=== PATIENT | female | born 1935 | race Hispanic/Latino ===

== ENCOUNTER 2018-05-17 06:55 | Inpatient (IN) | payer SELFPAY ==
[2018-05-17] MEDS ORDERED: ONDANSETRON 4 MG/2 ML VIAL ONE (07:37)
[2018-05-17] MEDS ORDERED: MORPHINE 2 MG/ML SYR ONE (07:37)
[2018-05-17 07:44] LABS: Absolute Lymphocytes (CBC) 3.1 K/uL (0.7-4.9); Absolute Monocytes 0.8 K/uL (0.1-1.3); Absolute Neutrophil 10.1 K/uL (1.8-8.0); Basophils % 0.3 % (0-1.3); Eosinophils % 0.8 % (0-4.4); Lymphocytes % 21.8 % (15.3-44.8); MPV 10.2 fL (7.6-11.3); Monocytes % 5.7 % (3.3-12.3); RBC Red Blood Cell Count 4.76 M/uL (3.86-4.86)
[2018-05-17 07:59] LABS: Potassium 3.8 mmol/L (3.5-5.1)
[2018-05-17] MEDS ORDERED: NA CHLORIDE 0.9% 500 ML ONE (08:10)
--- NOTE | 2018-05-17 08:23 | ER ---
Nurse's Notes [facility] Name: Kerry Briceno Age: 82 yrs Sex: Female : 1935 Arrival Date: 05/17/2018 Time: 07:00 Bed 20 Private MD: Diagnosis: Fracture of unspecified part of neck of left femur Presentation: 05/17 07:16 Presenting complaint: Patient states: Walking this morning, tripped and fell hurting jl7 her left hip and leg, denies LOC, denies hitting head. Care prior to arrival: None. Mechanism of Injury: Fall from standing position. Trauma event details: Injury occurred in the [facility], Injury occurred: at home. Injury occurred: May 17, 2018. 07:16 Acuity: CATHERINE 2 jl7 07:16 Method Of Arrival: Wheelchair jl7 07:21 Transition of care: patient was not received from another setting of care. Onset of jl7 symptoms was May 17, 2018. Risk Assessment: Do you want to hurt yourself or someone else? Patient reports no desire to harm self or others. Initial Sepsis Screen: Does the patient meet any 2 criteria? No. Patient's initial sepsis screen is negative. Does the patient have a suspected source of infection? No. Patient's initial sepsis screen is negative. Triage Assessment: 07:15 General: Appears in no apparent distress. uncomfortable, Behavior is calm, cooperative, jl7 appropriate for age. Pain: Complains of pain in left hip and left thigh Pain currently is 10 out of 10 on a pain scale. Neuro: Level of Consciousness is awake, alert, obeys commands, Oriented to person, place, time, situation. Cardiovascular: Patient's skin is warm and dry. Respiratory: Airway is patent Respiratory effort is even, unlabored, Respiratory pattern is regular, symmetrical. Derm: Skin is pink, warm \T\ dry. Musculoskeletal: left leg shortened and externally rotated. Trauma Activation: Alert Physician: ED Physician; Name: ; Notified At: ; Arrived At: Physician: General Surgeon; Name: ; Notified At: ; Arrived At: Physician: Radiology; Name: ; Notified At: ; Arrived At: Physician: Respiratory; Name: ; Notified At: ; Arrived At: Physician: Lab; Name: ; Notified At: ; Arrived At: Historical: - Allergies: 07:22 PENICILLINS; jl7 - PMHx: 07:22 Asthma; Diabetes - NIDDM; High Cholesterol; Hypertension; jl7 - PSHx: 07:22 Right knee replacement; jl7 - Immunization history:: Adult Immunizations unknown. - Social history:: Smoking status: Patient/guardian denies using tobacco. - Immunization history: Last tetanus immunization: unknown. - Family history:: not pertinent. - Ebola Screening: : No symptoms or risks identified at this time. - Hospitalizations: : No recent hospitalization is reported. Screenin:16 Abuse screen: Denies threats or abuse. Denies injuries from another. Tuberculosis jl7 screening: No symptoms or risk factors identified. 07:39 Fall Risk Fall in past 12 months (25 points). No secondary diagnosis (0 pts). IV access jl7 (20 points). Ambulatory Aid- None/Bed Rest/Nurse Assist (0 pts). Gait- Impaired (20 pts.). Mental Status- Oriented to own ability (0 pts). Total Sky Fall Scale indicates High Risk Score (45 or more points). Fall prevention measures have been instituted. Side Rails Up X 2 Placed Close to Nursing Station Frequent Obs/Assessments Occuring Family Present and informed to notify staff if the need to leave the bedside As available patient and family educated on Fall Prevention Program and Strategies. 08:02 Nutritional screening: No deficits noted. jl7 Primary Survey: 07:16 NO uncontrolled hemorrhage observed. A: Airway: patent. Breathing/Chest: Respiratory jl7 pattern: regular, Respiratory effort: spontaneous, unlabored, Chest inspection: symmetrical rise and fall of the chest. Circulation: Skin color: pink, Skin temperature: warm, dry. Disability Alert. Exposure/Environment: There is no evidence of uncontrolled external bleeding. 07:37 Reassessment Breathing/Chest Respiratory pattern Regular Respiratory effort Spontaneous jl7 Unlabored Breath sounds Clear Chest inspection Symmetrical. Secondary Survey: 07:23 HEENT: No deficits noted. Gastrointestinal: No deficits noted. : No deficits noted. jl7 Musculoskeletal: left leg noted to be shortened and externally rotated. Assessment: 07:30 General: See triage assessment. jl7 08:20 Reassessment: Dr. Mauricio at bedside discussing plan of care. jl7 09:30 Reassessment: Patient appears in no apparent distress at this time. Patient and/or pc1 family updated on plan of care and expected duration. Pain level reassessed. Patient is alert, oriented x 3, equal unlabored respirations, skin warm/dry/pink. 10:30 Reassessment: Patient appears in no apparent distress at this time. No changes from pc1 previously documented assessment. Patient and/or family updated on plan of care and expected duration. Pain level reassessed. Patient is alert, oriented x 3, equal unlabored respirations, skin warm/dry/pink. 11:52 Reassessment: Patient appears in no apparent distress at this time. No changes from jl7 previously documented assessment. Patient and/or family updated on plan of care and expected duration. Pain level reassessed. Patient is alert, oriented x 3, equal unlabored respirations, skin warm/dry/pink. Vital Signs: 07:16 BP 154 / 47; Pulse 75; Resp 16 S; Temp 97.6(O); Pulse Ox 98% on R/A; Weight 72.57 kg jl7 (R); Pain 10/10; 07:30 BP 142 / 33; Pulse 69; Resp 16 S; Pulse Ox 93% on R/A; jl7 07:56 BP 121 / 36; Pulse 79; Resp 16 S; Pulse Ox 94% on 2 lpm NC; Pain 2/10; jl7 08:30 BP 122 / 47; Pulse 84; Resp 16 S; Pulse Ox 96% on 2 lpm NC; pc1 09:30 BP 119 / 45; Pulse 88; Resp 14; Pulse Ox 97% on 2 lpm NC; pc1 10:35 BP 126 / 42; Pulse 79; Resp 17 S; Pulse Ox 97% on 2 lpm NC; pc1 11:50 BP 126 / 40; Pulse 91; Resp 16 S; Pulse Ox 96% on 2 lpm NC; jl7 [place] Coma Score: 07:16 Eye Response: spontaneous(4). Verbal Response: oriented(5). Motor Response: obeys jl7 commands(6). Total: 15. 07:30 Eye Response: spontaneous(4). Verbal Response: oriented(5). Motor Response: obeys jl7 commands(6). Total: 15. 07:56 Eye Response: spontaneous(4). Verbal Response: oriented(5). Motor Response: obeys jl7 commands(6). Total: 15. 08:30 Eye Response: spontaneous(4). Verbal Response: oriented(5). Motor Response: obeys pc1 commands(6). Total: 15. 09:30 Eye Response: spontaneous(4). Verbal Response: oriented(5). Motor Response: obeys pc1 commands(6). Total: 15. 10:35 Eye Response: spontaneous(4). Verbal Response: oriented(5). Motor Response: obeys pc1 commands(6). Total: 15. 11:50 Eye Response: spontaneous(4). Verbal Response: oriented(5). Motor Response: obeys jl7 commands(6). Total: 15. Trauma Score (Adult): 07:16 Eye Response: spontaneous(1); Verbal Response: oriented(1); Motor Response: obeys jl7 commands(2); Systolic BP: > 89 mm Hg(4); Respiratory Rate: 10 to 29 per min(4); [place] Score: 15; Trauma Score: 12 ED Course: 07:00 Patient arrived in ED. am2 07:04 Moses Kaur MD is Attending Physician. rn 07:15 Renzo Stewart RN is Primary Nurse. jl7 07:16 Patient has correct armband on for positive identification. Placed in gown. Bed in low jl7 position. Call light in reach. Side rails up X2. 07:16 Patient maintains SpO2 saturation greater than 95% on room air. Thermoregulation: warm jl7 blanket given to patient. 07:18 Triage completed. jl7 07:22 Arm band placed on right wrist. jl7 07:30 Inserted saline lock: 22 gauge in right forearm, using aseptic technique. pc1 07:59 EKG done, by ultrasound tech. reviewed by Moses Kaur MD. at1 08:14 X-ray completed. Portable x-ray completed in exam room. Patient tolerated procedure kw well. 08:15 XRAY Pelvis In Process Unspecified. EDMS 08:15 XRAY Femur LEFT In Process Unspecified. EDMS 08:21 Justice Mauricio DO is Hospitalizing Provider. rn 10:17 Dumont cath inserted, using sterile technique, 16 Fr., by ga, balloon inflated, to jl7 gravity drainage, urine specimen collected. returned clear yellow urine. Patient tolerated well. 12:01 No provider procedures requiring assistance completed. Patient admitted, IV remains in jl7 place. intact, No redness/swelling at site. Administered Medications: 07:32 Drug: morphine 2 mg Route: IVP; Site: right forearm; pc1 08:00 Follow up: Response: No adverse reaction; Pain is decreased jl7 07:32 Drug: Zofran 4 mg Route: IVP; Site: right forearm; pc1 08:00 Follow up: Response: No adverse reaction jl7 08:00 Drug: NS 0.9% 500 ml Route: IV; Rate: bolus; Site: right forearm; jl7 08:29 Follow up: IV Status: Completed infusion; IV Intake: 500ml jl7 Intake: 08:29 IV: 500ml; Total: 500ml. jl7 12:01 IV: 500ml; Total: 1000ml. jl7 Output: 12:01 Urine: 600ml (Dumont); Total: 600ml. jl7 Outcome: 08:22 Decision to Hospitalize by Provider. rn 12:00 Admitted to Med/surg accompanied by nando, family with patient, via stretcher, room 431, jl7 with chart, Report called to BAUTISTA Garcia 12:00 Condition: stable 12:00 Patient's length of stay in the Emergency Department was greater than 2 hours. Awaiting room assignment Patient's length of stay extended due to 12:01 Attestation : I agree with everything documented by Corey Mitchell, Student Nurse. jl7 12:03 Patient left the ED. jl7 Signatures: Dispatcher [employer] EDMS Moses Kaur MD MD rn Whitley, Kimberlee kw Gonzales, Amanda, reconstructive dentist EKG Tat1 Renzo Stewart RN RN jl7 Moreno, Amanda am2 Corey Mitchell pc1 Corrections: (The following items were deleted from the chart) 07:34 07:33 Inserted saline lock: 22 gauge in right forearm, using aseptic technique. pc1 pc1
--- NOTE | 2018-05-17 08:23 | EDPHYS ---
Physician Documentation [facility] Name: Kerry Briceno Age: 82 yrs Sex: Female : 1935 Arrival Date: 05/17/2018 Time: 07:00 Bed 20 Private MD: ED Physician Moses Kaur HPI: 05/17 07:13 This 82 yrs old Female presents to ER via Unassigned with complaints of Fall rn Injury, Leg Pain. 07:13 Details of fall: The patient fell from an upright position, while walking. Onset: The rn symptoms/episode began/occurred just prior to arrival. Associated injuries: The patient sustained + left leg pain. Severity of symptoms: At their worst the symptoms were moderate, in the emergency department the symptoms are unchanged. The patient has not experienced similar symptoms in the past. Reports got up to go to bathroom, got dizzy, fell onto left side, isolated injury to left hip. Did not hit head, no LOC, no blood thinners, no neck or back pain, no chest pain, no abd pain. . Historical: - Allergies: 07:22 PENICILLINS; jl7 - PMHx: 07:22 Asthma; Diabetes - NIDDM; High Cholesterol; Hypertension; jl7 - PSHx: 07:22 Right knee replacement; jl7 - Immunization history:: Adult Immunizations unknown. - Social history:: Smoking status: Patient/guardian denies using tobacco. - Immunization history: Last tetanus immunization: unknown. - Family history:: not pertinent. - Ebola Screening: : No symptoms or risks identified at this time. - Hospitalizations: : No recent hospitalization is reported. ROS: 07:13 Constitutional: Negative for fever, chills, and weight loss, Eyes: Negative for injury, rn pain, redness, and discharge, Neck: Negative for injury, pain, and swelling, Cardiovascular: Negative for chest pain, palpitations, and edema, Respiratory: Negative for shortness of breath, cough, wheezing, and pleuritic chest pain, Abdomen/GI: Negative for abdominal pain, nausea, vomiting, diarrhea, and constipation, MS/Extremity: + left leg pain Skin: Negative for injury, rash, and discoloration, Neuro: Negative for headache, weakness, numbness, tingling, and seizure. Exam: 07:13 Constitutional: This is a well developed, well nourished patient who is awake, alert, rn appears in pain Head/Face: Normocephalic, atraumatic. Eyes: Pupils equal round and reactive to light, extra-ocular motions intact. Lids and lashes normal. Conjunctiva and sclera are non-icteric and not injected. Cornea within normal limits. Periorbital areas with no swelling, redness, or edema. Neck: NO spinal tenderness Cardiovascular: Regular rate and rhythm, No pulse deficits. Respiratory: Lungs have equal breath sounds bilaterally, clear to auscultation, No increased work of breathing, no retractions or nasal flaring. Abdomen/GI: soft, non-tender Back: No spinal tenderness. Skin: Warm, dry MS/ Extremity: Pulses equal, no cyanosis. Neurovascular intact. Full, normal range of motion. Equal circumference. Neuro: Awake and alert, GCS 15, oriented to person, place, time, and situation. Cranial nerves II-XII grossly intact. Motor strength 5/5 in all extremities (limited proximal LLE due to pain). Sensory grossly intact. Vital Signs: 07:16 BP 154 / 47; Pulse 75; Resp 16 S; Temp 97.6(O); Pulse Ox 98% on R/A; Weight 72.57 kg jl7 (R); Pain 10/10; 07:30 BP 142 / 33; Pulse 69; Resp 16 S; Pulse Ox 93% on R/A; jl7 07:56 BP 121 / 36; Pulse 79; Resp 16 S; Pulse Ox 94% on 2 lpm NC; Pain 2/10; jl7 08:30 BP 122 / 47; Pulse 84; Resp 16 S; Pulse Ox 96% on 2 lpm NC; pc1 09:30 BP 119 / 45; Pulse 88; Resp 14; Pulse Ox 97% on 2 lpm NC; pc1 10:35 BP 126 / 42; Pulse 79; Resp 17 S; Pulse Ox 97% on 2 lpm NC; pc1 11:50 BP 126 / 40; Pulse 91; Resp 16 S; Pulse Ox 96% on 2 lpm NC; jl7 [place] Coma Score: 07:16 Eye Response: spontaneous(4). Verbal Response: oriented(5). Motor Response: obeys jl7 commands(6). Total: 15. 07:30 Eye Response: spontaneous(4). Verbal Response: oriented(5). Motor Response: obeys jl7 commands(6). Total: 15. 07:56 Eye Response: spontaneous(4). Verbal Response: oriented(5). Motor Response: obeys jl7 commands(6). Total: 15. 08:30 Eye Response: spontaneous(4). Verbal Response: oriented(5). Motor Response: obeys pc1 commands(6). Total: 15. 09:30 Eye Response: spontaneous(4). Verbal Response: oriented(5). Motor Response: obeys pc1 commands(6). Total: 15. 10:35 Eye Response: spontaneous(4). Verbal Response: oriented(5). Motor Response: obeys pc1 commands(6). Total: 15. 11:50 Eye Response: spontaneous(4). Verbal Response: oriented(5). Motor Response: obeys jl7 commands(6). Total: 15. Trauma Score (Adult): 07:16 Eye Response: spontaneous(1); Verbal Response: oriented(1); Motor Response: obeys jl7 commands(2); Systolic BP: > 89 mm Hg(4); Respiratory Rate: 10 to 29 per min(4); [place] Score: 15; Trauma Score: 12 MDM: 07:04 Patient medically screened. rn 08:21 Differential diagnosis: contusion, fracture. Data reviewed: vital signs, nurses notes, broodmare barn groom test result(s), EKG, radiologic studies, plain films, and as a result, I will admit patient. Counseling: I had a detailed discussion with the patient and/or guardian regarding: the historical points, exam findings, and any diagnostic results supporting the discharge/admit diagnosis, lab results, radiology results, the need for further work-up and treatment in the hospital. Response to treatment: the patient's symptoms have mildly improved after treatment, and as a result, I will admit patient. Admission orders: after a detailed discussion of the patient's condition and case, the admit orders are written by me. ED course: Consulted with tiera Haynes patient in hospital, admitted to Dr. Mauricio. . 05/17 07:12 Order name: CBC with Diff; Complete Time: 08:06 rn 05/17 07:12 Order name: Basic Metabolic Panel; Complete Time: 08: rn 05/17 07:12 Order name: PT-INR; Complete Time: 08:06 rn 05/17 07:12 Order name: Ptt, Activated; Complete Time: 08:06 rn 05/17 07:12 Order name: XRAY Pelvis rn 05/17 10:23 Order name: Urine Dipstick--Ancillary (enter results) bd 05/17 07:12 Order name: IV Start; Complete Time: 07:37 rn 05/17 07:12 Order name: EKG; Complete Time: 07:13 rn 05/17 07:12 Order name: EKG - Nurse/Tech; Complete Time: 07:37 rn 05/17 07:12 Order name: XRAY Femur LEFT rn 05/17 07:12 Order name: NPO; Complete Time: 07:16 rn 05/17 10:17 Order name: Dumont; Complete Time: 10:17 jl7 Administered Medications: 07:32 Drug: morphine 2 mg Route: IVP; Site: right forearm; pc1 08:00 Follow up: Response: No adverse reaction; Pain is decreased jl7 07:32 Drug: Zofran 4 mg Route: IVP; Site: right forearm; pc1 08:00 Follow up: Response: No adverse reaction jl7 08:00 Drug: NS 0.9% 500 ml Route: IV; Rate: bolus; Site: right forearm; jl7 08:29 Follow up: IV Status: Completed infusion; IV Intake: 500ml jl7 Disposition: 05/17/18 08:22 Hospitalization ordered by Justice Mauricio for Inpatient Admission. Preliminary diagnosis is Fracture of unspecified part of neck of left femur. - Bed requested for Telemetry/MedSurg (Inpatient). - Status is Inpatient Admission. jl7 - Condition is Stable. - Problem is new. - Symptoms have improved. UTI on Admission? No Signatures: Dispatcher [employer] EDMS Lula Merino Roman, MD MD rn Leal, Jahala, RN RN jl7 Corey Mitchell pc1 Corrections: (The following items were deleted from the chart) 11:37 08:22 Hospitalization Ordered by Justice Mauricio DO for Inpatient Admission. Preliminary bd diagnosis is Fracture of unspecified part of neck of left femur. Bed requested for Telemetry/MedSurg (Inpatient). Status is Inpatient Admission. Condition is Stable. Problem is new. Symptoms have improved. UTI on Admission? No. rn 12:03 11:37 05/17/2018 08:22 Hospitalization Ordered by Justice Mauricio DO for Inpatient jl7 Admission. Preliminary diagnosis is Fracture of unspecified part of neck of left femur. Bed requested for Telemetry/MedSurg (Inpatient). Status is Inpatient Admission. Condition is Stable. Problem is new. Symptoms have improved. UTI on Admission? No. bd
--- NOTE | 2018-05-17 08:45 | RAD REPORT ---
EXAM DESCRIPTION: RAD - Pelvis - 05/17/2018 8:15 am CLINICAL HISTORY: BLUNT TRAUMA Fall, left hip pain COMPARISON: None FINDINGS: AP pelvis and left femur -multiple projections are submitted Subcapital fracture the proximal left femur is present with varus angulation. No dislocation evident. No additional fracture evident.
[2018-05-17] MEDS: INSULIN -REGULAR HUMAN 50 UNIT/0.5 ML ML SQ SCH ×3 (12:22→22:36)
[2018-05-17] MEDS ORDERED: ACETAMINOPHEN 650MG/RECT SUPP PR PRN (12:22)
[2018-05-17] MEDS ORDERED: MORPHINE 2 MG/ML SYR IV PRN (12:22)
[2018-05-17] MEDS ORDERED: HYDRALAZINE HCL 20 MG/ML VIAL IV PRN (12:22)
[2018-05-17] MEDS ORDERED: ONDANSETRON 4 MG/2 ML VIAL IV PRN (12:22)
--- NOTE | 2018-05-17 12:35 | P.HP ---
Certification for Inpatient Patient admitted to: Inpatient With expected LOS: >2 Midnights Patient will require the following post-hospital care: Rehabilitation Practitioner: I am a practitioner with admitting privileges, knowledge of patient current condition, hospital course, and medical plan of care. Services: Services provided to patient in accordance with Admission requirements found in Title 42 Section 412.3 of the Code of Federal Regulations Patient History Date of Service: 05/17/18 Primary Care Provider: Kary Smith Reason for admission: Traumatic fall History of Present Illness: 82-year-old female presented to the emergency room after a traumatic fall. Patient suffered a traumatic fall. She got out of bed this morning. She headed to the bathroom. She felt slightly dizzy and fell to the ground. She hit her left side. Patient had pain to the left hip region. Patient denied any chest pain, shortness of breath. She denied any syncope. She was sent to the ER for further evaluation. In the ER patient evaluated. Vital signs stable. Patient found to have left subcapital fracture of the proximal femur. Mild varus angulation was identified. White count 14.0, hemoglobin 13. Sodium 140, potassium 3.8. BUN of 21, creatinine 1.0 with a GFR of 53. Patient was admitted for further treatment. When I saw the patient ER, she appeared comfortable. Patient with underlying diabetes, hypertension and hyperlipidemia. Patient currently NPO. Allergies Penicillins Allergy (Unverified 05/14/14 17:59) Unknown Home medications list reviewed: Yes Home Medications: Atorvastatin Calcium 10 mg PO DAILY 05/17/18 Irbesartan [Avapro] 75 mg PO DAILY 05/17/18 - Past Medical/Surgical History Diabetic: Yes -: Diabetes mellitus type 2 -: Hypertension -: Hyperlipidemia -: Right knee surgery -: Cholecystectomy -: Hysterectomy -: Bladder suspension Psychosocial/ Personal History: Patient is . Lives at home. - Family History Family History: Reviewed- Non-Contributory - Social History Smoking Status: Never smoker Alcohol use: No CD- Drugs: No Caffeine use: No Place of Residence: Home Review of Systems General: As per HPI Eyes: Unremarkable ENT: Unremarkable Respiratory: Unremarkable Cardiovascular: Light Headedness, As per HPI Gastrointestinal: Unremarkable Genitourinary: Unremarkable Musculoskeletal: As per HPI Integumentary: Unremarkable Neurological: Unremarkable Lymphatics: Unremarkable Physical Examination - Physical Exam General: Alert, In no apparent distress, Oriented x3, Cooperative HEENT: Atraumatic, Normocephalic, PERRLA, Mucous membr. moist/pink Neck: Supple Respiratory: Clear to auscultation bilaterally, Normal air movement Cardiovascular: Normal pulses, Regular rate/rhythm Gastrointestinal: Normal bowel sounds, Soft and benign, Non-distended, No tenderness, No masses, No rebound, No guarding Musculoskeletal: No erythema, No warmth, Other (Pain to the left hip noted.) Integumentary: No erythema, No warmth, No cyanosis Neurological: Normal speech, Normal strength at 5/5 x4 extr, Normal tone, Normal affect - Studies Laboratory Data (last 24 hrs) 05/17/18 07:30: PT 11.8, INR 1.00, APTT 30.2 05/17/18 07:30: Sodium 140, Potassium 3.8, BUN 21 H, Creatinine 1.00, Glucose 161 H 05/17/18 07:30: WBC 14.1 H, Hgb 13.8, Hct 42.0, Plt Count 204 Assessment and Plan - Plan Impression: Traumatic mechanical fall now with left subcapital proximal femur fracture Diabetes mellitus type 2 Hypertension Hyperlipidemia Plan: Traumatic mechanical fall now with left subcapital proximal femur fracture: Patient stable this time. Patient is NPO. Patient low risk for surgery. Case discussed with orthopedics. Orthopedics plans for surgery this afternoon. Patient will be a good candidate for inpatient rehab after surgery. Will monitor closely. Will provide medication for pain. Patient currently being prepared for surgery. Will hold DVT prophylaxis in preparation for surgery. Patient will require DVT prophylaxis after surgery. Diabetes mellitus type 2: Will provide insulin sliding scale and monitor Accu- Cheks.. Hypertension: Will provide medication IV. Hyperlipidemia: Will hold her medication at this time. Discharge Plan: Other (Inpatient rehab) Plan to discharge in: Greater than 2 days - Advance Directives Does patient have a Living Will: No Does patient have a Durable POA for Healthcare: No - Code Status/Comfort Care Code Status Assessed: Yes (Patient is full code.) Time Spent Managing Pts Care (In Minutes): 55
[2018-05-17 13:10] LABS: Urine Blood TRACE (NEG); Urine Glucose NEGATIVE (NEG); Urine Protein NEGATIVE (NEG)
--- NOTE | 2018-05-17 13:48 | P.CNS ---
Date of Consult: 05/17/18 Requesting Physician: Justice Mauricio Primary Care Provider: [facility] Chief Complaint: Traumatic fall History of Present Illness: 82-year-old female got dizzy going to the toilet and fell to impact her left side. Allergies Penicillins Allergy (Unverified 05/14/14 17:59) Unknown Home Medications: Atorvastatin Calcium 10 mg PO DAILY 05/17/18 Irbesartan [Avapro] 75 mg PO DAILY 05/17/18 glyBURIDE [Glyburide] 1 tab PO BID 05/17/18 - Past Medical/Surgical History Diabetic: Yes -: Diabetes mellitus type 2 -: Hypertension -: Hyperlipidemia -: Right knee TKA surgery -: Cholecystectomy -: Hysterectomy -: Bladder suspension Psychosocial/ Personal History: Patient is . Lives at home. - Family History Father Medical History: Heart disease Mother Medical History: Other (see notes) Notes: of old age - Social History Smoking Status: Never smoker Alcohol use: No CD- Drugs: No Caffeine use: No Place of Residence: Home Review of Systems 10-point ROS is otherwise unremarkable Physical Examination General: In no apparent distress, Oriented x3, Cooperative HEENT: Atraumatic, Normocephalic, PERRLA Neck: Supple Respiratory: Clear to auscultation bilaterally, Normal air movement Cardiovascular: No edema, Normal pulses Capillary refill: Brisk Gastrointestinal: Normal bowel sounds, Soft and benign, Non-distended Musculoskeletal: Tenderness (Tenderness noted with any movement of foot or ankle , pain was located at the hip.) Neurological: Sensation intact Urinary: Dumont catheter External genitalia: Deferred Rectal: Deferred Laboratory Data (last 24 hrs) 05/17/18 07:30: PT 11.8, INR 1.00, APTT 30.2 05/17/18 07:30: Sodium 140, Potassium 3.8, BUN 21 H, Creatinine 1.00, Glucose 161 H 05/17/18 07:30: WBC 14.1 H, Hgb 13.8, Hct 42.0, Plt Count 204 - Problems (1) Closed displaced fracture of left femoral neck with routine healing Current Visit: Yes Status: Acute Plan: This patient has a closed displaced subcapital femoral neck fracture of the left hip. Plan: This patient will be taken to surgery for insertion of a cemented unipolar hip prosthesis with removal of the femoral head and calcar fragments.
[2018-05-17] MEDS ORDERED: NA CHLORIDE 0.9% 1,000 ML ONE (14:27)
[2018-05-17] MEDS ORDERED: CEFAZOLIN/SWI 1gm 1 GM/10 ML SYR ONE (14:28)
[2018-05-17] MEDS ORDERED: PNEUMOCOCCAL VACCINE 0.5 ML IMVAC ONE (15:00)
[2018-05-17] MEDS: TRANEXAMIC ACID 1,000 MG in NA CHLORIDE 0.9% 50 ML IV SCH ×2 (15:39→16:30)
[2018-05-17] MEDS: CEFAZOLIN/SWI 1gm 1 GM/10 ML SYR IV SCH ×2 (15:39→16:25)
[2018-05-17] MEDS ORDERED: PROPOFOL 200 MG/20 ML VIAL IV ONE (15:41)
[2018-05-17] MEDS ORDERED: FENTANYL CITR 100 MCG/2 ML ONE ×2 (15:41→18:06)
[2018-05-17] MEDS ORDERED: LIDOCAINE 1% MPF 5 ML VIAL ONE (15:41)
[2018-05-17] MEDS ORDERED: ROCURONIUM 50 MG/5 ML VIAL IV ONE (15:41)
[2018-05-17] MEDS ORDERED: MIDAZOLAM HCL 2 MG/2 ML INJ ONE (15:41)
[2018-05-17] MEDS ORDERED: BUPIVACA 0.25%/EPI 0.0005% MDV 50 ML VIAL ONE (16:09)
[2018-05-17] MEDS: Ringers Lactate 1,000 ML IV ONE ×3 (17:30→17:36)
[2018-05-17] MEDS ORDERED: GLUCAGON 1 MG/VIAL IM PRN (17:39)
[2018-05-17] MEDS ORDERED: D50W 25 GM/50 ML SYRINGE IV PRN (17:39)
[2018-05-17] MEDS ORDERED: Phenylephrine HCl 10 MG/ML 1 ML VIAL ONE (18:22)
[2018-05-17] MEDS ORDERED: Ringers Lactate 1,000 ML IV ONE (18:54)
--- NOTE | 2018-05-17 19:25 | P.BOP ---
Preoperative diagnosis: LEFT HIP FEMORAL NECK FX Postoperative diagnosis: SAME Primary procedure: INSERTION OF CEMENTED UNIPOLAR HIP PROSTHESIS LEFT HIP FEMORAL NECK FX Motorboat Mechanic: CAROL ANN CEDEÑO (GAVE NECESSARY 1ST ASSIST THROUGHOUT CASE) Estimated blood loss: 350mL Specimen: FEMORAL HIP BALL AND CALCAR SHARDS Findings: MID CALCAR FRACTURE, DISPLACED 100% Anesthesia: General Complications: None Implants: CHAUNCEY HIP [id number];SUMMIT STEM3 CEMENT;NECK-3mm;CENTRALIZER 8.5mm Fluids & blood products: SIMPLEX HV CEMENT 2 BATCHES; 0.5%MARCAINEwEPI 30 mL Transferred to: Recovery Room Condition: Good
[2018-05-17] MEDS ORDERED: MORPHINE 4 MG/ML SYR IV PRN (19:31)
[2018-05-17] MEDS ORDERED: PROMETHAZINE 25 MG/ML VIAL ONE (19:39)
--- NOTE | 2018-05-17 19:51 | RAD REPORT ---
EXAM DESCRIPTION: RAD - Pelvis - 05/17/2018 7:37 pm CLINICAL HISTORY: Left femoral fracture FINDINGS: Postsurgical changes of a left hip arthroplasty is seen. Prosthesis is in good position. No fracture or dislocation
[2018-05-18] MEDS ORDERED: CEFAZOLIN SODIUM 1 GM/VIAL ONE (01:34)
[2018-05-18] MEDS: CEFAZOLIN/NS 1gm 1 GM/50 ML BAG IVPB SCH ×2 (01:51→05:21)
[2018-05-18] MEDS ORDERED: NA CHLORIDE 0.9% 100 ML ONE (01:55)
[2018-05-18 04:02] LABS: Absolute Lymphocytes (CBC) 1.6 K/uL (0.7-4.9); Absolute Neutrophil 9.5 K/uL (1.8-8.0); Basophils % 0.2 % (0-1.3); Hematocrit 32.8 % (36.0-45.0); Lymphocytes % 12.9 % (15.3-44.8); Monocytes % 8.4 % (3.3-12.3); RBC Red Blood Cell Count 3.72 M/uL (3.86-4.86)
[2018-05-18 04:20] LABS: Magnesium 1.7 mg/dL (1.8-2.4); Potassium 3.9 mmol/L (3.5-5.1)
[2018-05-18] MEDS: INSULIN -REGULAR HUMAN 50 UNIT/0.5 ML ML SQ SCH ×4 (07:30→21:00)
--- NOTE | 2018-05-18 08:14 | RAD REPORT ---
EXAM DESCRIPTION: RAD - Femur Left - 05/17/2018 8:15 am CLINICAL HISTORY: BLUNT TRAUMA Fall, left hip pain COMPARISON: None FINDINGS: AP pelvis and left femur -multiple projections are submitted Subcapital fracture the proximal left femur is present with varus angulation. No dislocation evident. No additional fracture evident.
[2018-05-18] MEDS: ENOXAPARIN 40 MG/0.4 ML SQ SCH (08:56)
[2018-05-18] MEDS ORDERED: FAMOTIDINE 20 MG/2 ML VIAL IV SCH (09:00)
[2018-05-18] MEDS ORDERED: MAGNESIUM SULFATE 1 gm IVPB 1 GM/100 ML BAG IV ONE (09:00)
[2018-05-18] MEDS ORDERED: POTASSIUM 25 MEQ EFFERV TAB PO ONE (09:00)
--- NOTE | 2018-05-18 09:57 | P.PN ---
Subjective Date of Service: 05/18/18 Primary Care Provider: Kary Smith Chief Complaint: Traumatic fall Subjective: Doing well Physical Examination - Vital Signs Temperature: 97.9 F Blood Pressure: 125/49 Pulse: 90 Respirations: 19 Pulse Ox (%): 95 - Physical Exam General: Alert, In no apparent distress, Cooperative HEENT: Atraumatic Neck: Supple Respiratory: Clear to auscultation bilaterally, Normal air movement Cardiovascular: Normal pulses, Regular rate/rhythm Gastrointestinal: Normal bowel sounds, Soft and benign, Non-distended Musculoskeletal: No erythema, No tenderness, No warmth Integumentary: No erythema, No warmth, No cyanosis Neurological: Normal speech, Normal strength at 5/5 x4 extr, Normal tone, Normal affect - Studies Medications List Reviewed: Yes Assessment & Plan Discharge Plan: Other (Inpatient rehab) Plan to discharge in: 48 Hours Physician Review Additional Text: Impression: Traumatic mechanical fall with left subcapital proximal femur fracture status post surgical repair Diabetes mellitus type 2 Hypertension Hyperlipidemia Plan: Traumatic mechanical fall with left subcapital proximal femur fracture status post surgical repair: Patient doing well this time. Patient is status post surgery. Will continue with DVT prophylaxis. Continue with pain control. Patient to start physical therapy today. Will need to check what options are available for patient. Will recommend inpatient rehab. Will discuss with orthopedics. Diabetes mellitus type 2: Will continue with sliding scale. Overall stable. Hypertension: Will restart home medication. Hyperlipidemia: Restart home medication. Time Spent Managing Pts Care (In Minutes): 55
[2018-05-18] MEDS: HYDROCODONE/APAP 7.5/325 MG TAB PO PRN (15:34)
[2018-05-18] MEDS: glyBURIDE 2.5 MG TAB PO SCH (16:15)
[2018-05-18] MEDS: ATORVASTATIN 10 MG TAB PO SCH (21:00)
[2018-05-19 04:10] LABS: Absolute Monocytes 1.3 K/uL (0.1-1.3); Absolute Neutrophil 7.4 K/uL (1.8-8.0); Basophils % 0.4 % (0-1.3); Eosinophils % 0.2 % (0-4.4); Hematocrit 31.2 % (36.0-45.0); Lymphocytes % 18.5 % (15.3-44.8); MPV 9.9 fL (7.6-11.3); Monocytes % 12.2 % (3.3-12.3); RBC Red Blood Cell Count 3.53 M/uL (3.86-4.86)
[2018-05-19 04:25] LABS: Potassium 3.8 mmol/L (3.5-5.1)
[2018-05-19] MEDS: INSULIN -REGULAR HUMAN 50 UNIT/0.5 ML ML SQ SCH ×4 (07:30→21:00)
[2018-05-19] MEDS: HYDROCODONE/APAP 7.5/325 MG TAB PO PRN ×2 (08:54→15:46)
[2018-05-19] MEDS: glyBURIDE 2.5 MG TAB PO SCH ×2 (08:54→16:23)
[2018-05-19] MEDS: ENOXAPARIN 40 MG/0.4 ML SQ SCH (08:55)
[2018-05-19] MEDS ORDERED: IRBESARTAN 150 MG TAB PO SCH (09:00)
[2018-05-19] MEDS ORDERED: POTASSIUM CL SA 10 MEQ TAB PO ONE (09:00)
--- NOTE | 2018-05-19 12:02 | P.PN ---
Date of Service: 05/18/18 (POD#1) S: PATIENT SITTING UP IN BED, IN GOOD SPIRITS. LARGE FAMILY PRESENCE IN ROOM. PATIENT AND FAMILY CONCERNED ABOUT DIZZINESS ASSOCIATED WITH FALL AT HOME AND P.T. EFFORTS TODAY. PAIN MEDS BEING USED SPARINGLY BY FAMILY ESTIMATE. O: VSS EXCEPT DIASTOLIC HOOVERING AROUND 50. MINIMAL USE OF PAIN MED NOTED, DID NOT GET MEDS UNTIL AFTER 2 PM. EXPECT DIZZINESS AND LOWER BLOOD PRESSURE LIMITED USE OF OPIODS THIS MORNING. PAIN CONTROLLED AT PRESENT. BANDAGE CLEAN DRY AND INTACT. DORSIFLEXION OF TOES AND ANKLE NOTED. SENSATION INTACT IN 1ST WEB SPACE AND LLE. HGB11.7 POST-OP AND 11.0 THIS A.M. PATIENT DID SIDE STEPS X 7 THIS A.M. AND AMBULATED WITH MAX ASSIST 10' THIS AFTERNOON WITH RW. A: SLOW PROGRESS FIRST POST-OP DAY WITH DIZZINESS LIMITING P.T. EFFORTS. P: CONTINUE MOBILIZATION TOLERATED. PATIENT NOTE INDICATES 5TH FLOOR REHAB IS UNAVAILABLE OPTION.
[2018-05-19] MEDS: TRAMADOL HCL 50 MG TAB PO PRN ×2 (13:18→21:22)
--- NOTE | 2018-05-19 15:05 | P.PN ---
Subjective Date of Service: 05/19/18 Primary Care Provider: Kary Smith Chief Complaint: Traumatic fall Subjective: Improving Physical Examination - Vital Signs Temperature: 98.6 F Blood Pressure: 98/50 Pulse: 100 Respirations: 18 Pulse Ox (%): 90 - Physical Exam General: Alert, In no apparent distress, Oriented x3, Cooperative HEENT: Atraumatic Neck: Supple Respiratory: Clear to auscultation bilaterally, Normal air movement Cardiovascular: Normal pulses, Regular rate/rhythm Gastrointestinal: Normal bowel sounds, Soft and benign, Non-distended Musculoskeletal: No erythema, No tenderness, No warmth Integumentary: No erythema, No warmth, No cyanosis Neurological: Normal speech, Normal strength at 5/5 x4 extr, Normal tone, Normal affect - Studies Medications List Reviewed: Yes Assessment & Plan Discharge Plan: Home Plan to discharge in: 72 Hours Physician Review Additional Text: Impression: Traumatic mechanical fall with left subcapital proximal femur fracture status post surgical repair Diabetes mellitus type 2 Hypertension Hyperlipidemia Anemia postop Plan: Traumatic mechanical fall with left subcapital proximal femur fracture status post surgical repair: Patient doing well the surgery. Patient continues with DVT prophylaxis. Pay and well controlled. Patient continue work with physical therapy. Patient does not qualify for inpatient rehab for skilled placement. Will check with manager social to see if home health and physical therapy can be arranged even though she does not have any insurance. Fall safety will need to be important prior to discharge. Anticipate discharge in the next 2-3 days. Will discuss with orthopedics. Encourage incentive spirometer. Encourage ambulation. Case and plan of care discussed with family. Diabetes mellitus type 2: Will continue with sliding scale and home medication. Overall stable. Hypertension: Blood pressure low after medication given. Will discontinue home medication. Will provide IV fluids and monitor pressure. Hyperlipidemia: Continue home medication. Anemia postop: Continue to monitor hemoglobin. Time Spent Managing Pts Care (In Minutes): 55
[2018-05-19] MEDS: NA CHLORIDE 0.9% 1,000 ML IV SCH (15:46)
--- NOTE | 2018-05-19 16:12 | P.PN ---
Date of Service: 05/19/18 (POD#2) S: PATIENT SITTING UP IN BEDSIDE CHAIR, AGAIN IN GOOD SPIRITS. O: VSS, AFEBRILE. MINIMAL USE OF PAIN MED CONTINUES, PAIN CHART 3,0,0,0,5/10. PAIN WELL CONTROLLED. PATIENT TOOK ONLY ONE NORCO YESTERDAY AND 2 SO FAR TODAY AT 9 AM AND 4 PM. ONLY ONE DOSE OF MORPHINE 2 mg YESTERDAY, NONE TODAY. BANDAGE REMAINS CLEAN DRY AND INTACT. DORSIFLEXION OF TOES AND ANKLE NOTED. SENSATION INTACT IN 1ST WEB SPACE AND LLE. HGB10.4 THIS A.M. PATIENT DID 156' WITH MINIMAL ASSIST THIS AFTERNOON. A: MUCH BETTER PROGRESS IN 2ND POST-OP DAY WITH NO C/O DIZZINESS.. P: CONTINUE MOBILIZATION TOLERATED. PATIENT HAS VERY LARGE FAMILY VERY INTERESTED IN HER CARE, LIKELY TO DO WELL AT HOME IF SHE CONTINUES TO MAKE GOOD PROGRESS WITH P.T. MONITOR WITH H.H. IF POSSIBLE.
[2018-05-19] MEDS: ATORVASTATIN 10 MG TAB PO SCH (21:22)
[2018-05-19] MEDS: ACETAMINOPHEN 500 MG TAB PO PRN (23:46)
[2018-05-20 05:10] LABS: Absolute Lymphocytes (CBC) 2.8 K/uL (0.7-4.9); Absolute Monocytes 1.1 K/uL (0.1-1.3); Absolute Neutrophil 5.3 K/uL (1.8-8.0); Basophils % 0.4 % (0-1.3); Eosinophils % 1.5 % (0-4.4); Hematocrit 28.1 % (36.0-45.0); Lymphocytes % 30.1 % (15.3-44.8); Monocytes % 11.6 % (3.3-12.3); RBC Red Blood Cell Count 3.13 M/uL (3.86-4.86)
[2018-05-20 05:30] LABS: Magnesium 2.2 mg/dL (1.8-2.4); Potassium 3.9 mmol/L (3.5-5.1)
[2018-05-20] MEDS ORDERED: POTASSIUM CL SA 10 MEQ TAB PO ONE (05:41)
[2018-05-20] MEDS: NA CHLORIDE 0.9% 1,000 ML IV SCH (06:13)
[2018-05-20] MEDS: INSULIN -REGULAR HUMAN 50 UNIT/0.5 ML ML SQ SCH ×4 (07:30→21:00)
--- NOTE | 2018-05-20 08:24 | P.PN ---
Subjective Date of Service: 05/20/18 Primary Care Provider: Kary Smith Chief Complaint: Traumatic fall Subjective: Other Physical Examination - Vital Signs Temperature: 97.6 F Blood Pressure: 133/62 Pulse: 78 Respirations: 16 Pulse Ox (%): 96 - Physical Exam General: Alert, In no apparent distress, Oriented x3, Cooperative HEENT: Atraumatic Neck: Supple Respiratory: Clear to auscultation bilaterally, Normal air movement Cardiovascular: Normal pulses, Regular rate/rhythm Gastrointestinal: Normal bowel sounds, Soft and benign, Non-distended, No tenderness, No masses, No rebound, No guarding Musculoskeletal: No erythema, No tenderness, No warmth Integumentary: No erythema, No warmth, No cyanosis Neurological: Normal speech, Normal strength at 5/5 x4 extr, Normal tone, Normal affect - Studies Medications List Reviewed: Yes Assessment & Plan Discharge Plan: Home Plan to discharge in: 48 Hours Physician Review Additional Text: Impression: Traumatic mechanical fall with left subcapital proximal femur fracture status post surgical repair Diabetes mellitus type 2 with hypoglycemia Hypertension Hyperlipidemia Anemia postop Plan: Traumatic mechanical fall with left subcapital proximal femur fracture status post surgical repair: Patient doing well from a physical therapy standpoint. Unfortunately patient does not qualify for inpatient rehab or skilled placement. Patient may not be able to get home health and physical therapy at discharge. Will continue with physical therapy. Will discontinue Dumont catheter. Encourage oral intake. Encourage incentive spirometer. Will continue to monitor the patient closely over the next 1-2 days. Will check on Tuesday to see if she can get home health/physical therapy through [facility]. If not patient will go home with support of family. Daughter plans to take the patient to [place] after hospital stay. hospital seen. Patient continues with DVT prophylaxis. Diabetes mellitus type 2 with hypoglycemia: Encourage oral intake. Will discontinue glipizide. Will monitor on sliding scale. Will start Glucerna supplementation b.i.d. I have told family that they can bring food from home. Will continue monitor closely. Hypertension: Blood pressure was low yesterday. I have discontinued her blood pressure medication. Will continue to monitor off medication. Due to her age patient may not require high doses of blood pressure medication. Hyperlipidemia: Continue home medication. Anemia postop: Continue to monitor hemoglobin. Time Spent Managing Pts Care (In Minutes): 55
[2018-05-20] MEDS: GLUCERNA SHAKE 237 ML CAN PO SCH ×2 (09:59→21:43)
[2018-05-20] MEDS: ENOXAPARIN 40 MG/0.4 ML SQ SCH (09:59)
--- NOTE | 2018-05-20 12:59 | P.PN ---
Date of Service: 05/20/18 (POD#3) S: PATIENT Encountered while walking in the hallway with physical therapy. No complaints today. O: VSS, AFEBRILE. MINIMAL USE OF PAIN MED CONTINUES, PAIN CHART 0,6,0,0,0,0/ 10. PAIN CONTROLLED. BANDAGE REMAINS CLEAN DRY AND INTACT. patient is moving well with front wheel walker without assistance at the present time. A: GOOD PROGRESS IN 3RD POST-OP DAY. P: CONTINUE MOBILIZATION TOLERATED.
[2018-05-20] MEDS: ACETAMINOPHEN 500 MG TAB PO PRN (16:16)
[2018-05-20] MEDS: ATORVASTATIN 10 MG TAB PO SCH (21:42)
[2018-05-21 05:09] LABS: Hematocrit 28.6 % (36.0-45.0)
[2018-05-21 05:29] LABS: Potassium 4.2 mmol/L (3.5-5.1)
[2018-05-21] MEDS: INSULIN -REGULAR HUMAN 50 UNIT/0.5 ML ML SQ SCH ×4 (07:30→22:27)
--- NOTE | 2018-05-21 08:00 | P.PN ---
Subjective Date of Service: 05/21/18 Primary Care Provider: Kary Smith Chief Complaint: Traumatic fall Subjective: Improving, Doing well Physical Examination - Vital Signs Temperature: 98.6 F Blood Pressure: 117/54 Pulse: 84 Respirations: 16 Pulse Ox (%): 97 - Physical Exam General: Alert, In no apparent distress, Oriented x3, Cooperative HEENT: Atraumatic Neck: Supple Respiratory: Clear to auscultation bilaterally, Normal air movement Cardiovascular: Normal pulses, Regular rate/rhythm Gastrointestinal: Normal bowel sounds, Soft and benign, Non-distended, No masses , No rebound, No guarding Musculoskeletal: No erythema, No tenderness, No warmth Integumentary: No tenderness/swelling, No erythema, No warmth, No cyanosis Neurological: Normal speech, Normal strength at 5/5 x4 extr, Normal tone - Studies Medications List Reviewed: Yes Assessment & Plan Discharge Plan: Home Plan to discharge in: 24 Hours Physician Review Additional Text: Impression: Traumatic mechanical fall with left subcapital proximal femur fracture status post surgical repair Diabetes mellitus type 2 with hypoglycemia Hypertension Hyperlipidemia Anemia postop Plan: Traumatic mechanical fall with left subcapital proximal femur fracture status post surgical repair: Patient doing well with physical therapy and status post surgery. Pain well controlled. Unfortunately patient does not qualify for inpatient rehab or skilled placement. Patient may not be able to get home health and physical therapy at discharge as well. Will continue with physical therapy until tomorrow. Will have social worker masters see if she can get home health and physical therapy through [facility] for at least 1 week. Daughter plans to take the patient to [place] next we can. Will recommend that she follow up with orthopedics prior to going to [place] or she plans to stay with daughter. Continue to encourage oral intake. Encourage incentive spirometer. Continue DVT prophylaxis. I will turn the service over to the hospitalist team tomorrow. I will go over the plan of care with them. Diabetes mellitus type 2 with hypoglycemia: Encourage oral intake. Glipizide has been discontinued. Blood sugars stable. Will monitor on sliding scale. Continue with Glucerna supplementation b.i.d. I have told family that they can bring food from home. Will continue monitor closely. Hypertension: Arb inhibitor discontinued. Blood pressure stable. No need for medication at this time. Will continue to monitor off medication. Due to her age patient may not require blood pressure medication. If required patient will need to be on low-dose medication Hyperlipidemia: Continue home medication. Anemia postop: Continue to monitor hemoglobin. Time Spent Managing Pts Care (In Minutes): 55
[2018-05-21] MEDS: ENOXAPARIN 40 MG/0.4 ML SQ SCH (08:23)
[2018-05-21] MEDS: GLUCERNA SHAKE 237 ML CAN PO SCH ×2 (08:23→20:08)
[2018-05-21] MEDS: HYDROCODONE/APAP 7.5/325 MG TAB PO PRN (11:56)
--- NOTE | 2018-05-21 18:37 | P.PN ---
Date of Service: 05/21/18 (POD#4) S: PATIENT Encountered Leaving room for ambulation effort with physical therapy. No complaints of pain today. O: VSS, AFEBRILE. PAIN CHART 0,0,0,0,0/10. HGB UP TODAY AT 9.6. BANDAGE REMAINS CLEAN DRY AND INTACT. Patient is moving well with front wheel walker with minimal assistance at the present time. A: GOOD PROGRESS IN 4th POST-OP DAY. P: Patient and family are ready for discharge tomorrow. Discussed with family member taking patient to [place] that they will come to my office on Tuesday of next week for kwadwo out. Bandage will be changed prior to discharge tomorrow.
[2018-05-21] MEDS: ATORVASTATIN 10 MG TAB PO SCH (20:08)
[2018-05-22 04:19] LABS: Hematocrit 28.4 % (36.0-45.0)
[2018-05-22] MEDS: INSULIN -REGULAR HUMAN 50 UNIT/0.5 ML ML SQ SCH (07:30)
[2018-05-22] MEDS: ENOXAPARIN 40 MG/0.4 ML SQ SCH (08:37)
[2018-05-22] MEDS: GLUCERNA SHAKE 237 ML CAN PO SCH (08:38)
--- NOTE | 2018-05-22 17:39 | P.DS ---
Admission Date: 05/17/18 Discharge Date: 05/22/18 Primary Care Provider: Kary Smith Disposition: ROUTINE DISCHARGE Discharge Condition: GOOD Reason for Admission: Traumatic fall Consultations: Orthopedics- doctor Hamzah - Problems (1) Closed displaced fracture of left femoral neck with routine healing Status: Acute (2) Diabetes Status: Chronic Qualifiers: Diabetes mellitus type: type 2 Diabetes mellitus contract technician insulin use: without contract technician use Diabetes mellitus complication status: without complication Qualified Code(s): E11.9 - Type 2 diabetes mellitus without complications (3) Hypertension Status: Chronic Qualifiers: Hypertension type: essential hypertension Qualified Code(s): I10 - Essential (primary) hypertension Brief History of Present Illness: 82-year-old female presented to the emergency room after a traumatic fall. Patient suffered a traumatic fall. She got out of bed this morning. She headed to the bathroom. She felt slightly dizzy and fell to the ground. She hit her left side. Patient had pain to the left hip region. Patient denied any chest pain, shortness of breath. She denied any syncope. She was sent to the ER for further evaluation. In the ER patient evaluated. Vital signs stable. Patient found to have left subcapital fracture of the proximal femur. Mild varus angulation was identified. White count 14.0, hemoglobin 13. Sodium 140, potassium 3.8. BUN of 21, creatinine 1.0 with a GFR of 53. Patient was admitted for further treatment. When I saw the patient ER, she appeared comfortable. Patient with underlying diabetes, hypertension and hyperlipidemia. Patient currently NPO. Hospital Course: Overall during the hospital stay patient main stable Patient was initially admitted to the hospital after having a fall at the house and having left-sided hip fracture. Orthopedic surgeon was consulted. Patient had a surgical procedure done here with the orthopedic surgeon. Patient tolerated the procedure well and did well overall postprocedure. Patient then had consultation with physical therapy and occupational therapy. Patient overall did well with physical and occupational therapy. Initially patient was planned to transfer to inpatient rehab versus [facility] facility however since patient was doing well and since patient is from out of town family prefer her going home with home health. Patient then was discharged home with home health and was asked to follow up with orthopedic in about 1-2 days post discharge. Patient was given a prescription for the sore also 10 mg for anti coagulation and was asked to follow up with Dr. Goodson in in about 1-2 days post discharge Vital Signs/Physical Exam: Temp Pulse Resp BP Pulse Ox 98.3 F 81 18 108/50 L 91 05/22/18 12:00 05/22/18 12:00 05/22/18 12:00 05/22/18 12:00 05/22/18 12:00 General: Alert, In no apparent distress HEENT: Atraumatic, PERRLA, EOMI Neck: Supple, JVD not distended Respiratory: Clear to auscultation bilaterally, Normal air movement Cardiovascular: Regular rate/rhythm, Normal S1 S2 Gastrointestinal: Normal bowel sounds, No tenderness Musculoskeletal: No tenderness Integumentary: No rashes Neurological: Normal speech, Normal tone, Normal affect Lymphatics: No axilla or inguinal lymphadenopathy Laboratory Data at Discharge: WBC 9.5 K/uL (4.3-10.9) 05/20/18 04:33 Hgb 9.5 g/dL (12.0-15.0) L 05/22/18 03:46 Hct 28.4 % (36.0-45.0) L 05/22/18 03:46 Plt Count 133 K/uL (152-406) L 05/20/18 04:33 PT 11.8 SECONDS (9.5-12.5) 05/17/18 07:30 INR 1.00 05/17/18 07:30 APTT 30.2 SECONDS (24.3-36.9) 05/17/18 07:30 Sodium 138 mmol/L (136-145) 05/21/18 04:45 Potassium 4.2 mmol/L (3.5-5.1) 05/21/18 04:45 BUN 19 mg/dL (7-18) H 05/21/18 04:45 Creatinine 0.70 mg/dL (0.55-1.3) 05/21/18 04:45 Glucose 87 mg/dL (74-106) 05/21/18 04:45 Magnesium 2.2 mg/dL (1.8-2.4) 05/20/18 04:33 Home Medications: Atorvastatin Calcium 10 mg PO DAILY 05/17/18 Irbesartan [Avapro] 75 mg PO DAILY 05/17/18 glyBURIDE [Glyburide] 1 tab PO BID 05/17/18 Rivaroxaban [Xarelto] 10 mg PO DAILY #30 tablet 05/22/18 New Medications: Rivaroxaban [Xarelto] 10 mg PO DAILY #30 tablet Patient Discharge Instructions: Please F.u with PCP and Dr Goodson in 1 to 2 days post discharge. No new medication Diet: Regular Activity: Ad dorie Followup: Gm Goodson MD [ACTIVE - CAN ADMIT] - 2-3 Days (call to schedule appointment)
--- NOTE | 2018-05-23 01:59 | OP ---
Date of Procedure: 05/17/2018 Surgeon: Gm Goodson MD Air Technician: Vikash Edwards, who gave necessary certified surgical first assistant throughout the case. Preoperative Diagnosis: Left femoral neck fracture, proximal femur. Postoperative Diagnosis: Left femoral neck fracture, proximal femur. Procedure: Insertion of cemented unipolar hip prosthesis, left hip femoral neck fracture. Indications: This 82-year-old female got dizzy going to the toilet and fell to impact her left hip. She was brought to the hospital, where x-ray showed a femoral neck fracture. After discussion of ri sks and benefits with all questions answered, she and her family have elected to proceed with inserti on of cemented unipolar hip prosthesis for the left hip femoral neck fracture. During this procedure , the patient had a Juan Pablo hip ball 42 mm in diameter with a -3 mm neck and a Weston cemented stem size 3 with an 8.5-mm centralizer inserted with 2 batches of Simplex HV cement. Technique: The patient was taken to the operating room and given a general anesthetic. She was move d to the operative table from the hospital bed on her back and then turned to the right lateral posit ion. Bolsters were placed in the lumbar spine, abdomen, and symphysis pubis to maintain the right la teral position. The foot was hung in traction and prepping was carried out from the ribcage to the a nkle circumferential in the area of the left buttock and groin and lower extremity to the ankle. The foot was taken down from traction and DuraPrep was used to prep the ankle and foot. An impervious s tockinette was applied as sterile sheets and U-drapes were also utilized to block off the operative a rhett. The incision was drawn on the lateral thigh with a curved toward the posterior-superior iliac s pine from the proximal third of the femur. Then, Ioban sticky drape was applied over the operative s ite. The incision was made sharply through the skin and subcutaneous tissue with hemostasis by Bovie coagulation. The cutting Bovie was utilized to enter the fascia lynne and the incision was carried f rom the distal end of the incision to the proximal end with cutting Bovie dissection of the fascial l jamin and traction and blunt finger splitting of the gluteus see. Self-retaining retractors were p laced within the incision, retracting the fascia lynne distally and the gluteus see proximally. P osterior approach with the cutting Bovie released first the twin external rotators that were tagged a nd part of the quadratus. The capsule was opened along the line of the posterior femur and at the ca lcar, the capsular incision was angled towards the acetabulum. This exposed the distal end of the ca lcar, which with a calcar cutting guide, an appropriate cut was made with oscillating saw. Shards of calcar were removed. This was approximately 1.5 cm proximal to the upper side of the lesser trochan ter. Then, the proximal femur was retracted with a bone hook anteriorly and the corkscrew was used t o control the femoral hip ball as pieces of calcar were removed with the rongeur. The skid was place d under the hip ball and the hip ball was delivered from the acetabulum and measured. It was found t o be 42 mm in diameter. The trial hip ball was a good fit and attention was turned to the proximal f emur. The calcar retractor was placed underneath the calcar and the proximal end of the femur was li fted out of the incision. The initiator was followed by the lateralizer and the medullary canal fine r, and then reaming was carried out to a size 3. Broaches were utilized. The size 3 broach was a go od solid fit in the proximal femur and trialing was carried out. The -3 neck was chosen. Then, the trial reduction was quite stable. The hip was redislocated and the trial components were removed. A n intramedullary plug was placed at the appropriate depth and 2 batches of simplex HV cement with epi were mixed and injected into the intramedullary canal using pressure techniques. Then, the size 3 S ummit stem was pressed into position and held for 18 minutes while cement was setting and the 42 mm h ip ball and the -3 mm neck were tapped into position on the stem. The centralizer 8.5 mm diameter witt d been placed at the tip of the stem. The hip prosthesis was then reduced with traction, internal ro tation followed by external rotation, that snapped into the acetabulum. Motion was quite adequate an d stable. Then, irrigation was used with Simpulse lavage at all levels while the capsular repair was done with #1 Vicryl. The piriformis was reattached to the tip of the greater trochanter. Gemelli w ere reattached to the posterior aspect of the fascial lynne attached to the margin of the vastus later emily. The fascia lynne was then repaired with interrupted sutures of #1 Vicryl extending up and inclu ding the fascial layer of the gluteus see. Another Simpulse lavage irrigation was followed by de ep subcu with #1 Vicryl, superficial subcu with 2-0 Vicryl, skin kwadwo for skin closure. The incis ion was injected with 0.5% Marcaine with epinephrine, 30 mL total, into the incision. The incision w as covered with an Aquacel bandage. The patient was removed from the operative table into the hospit al bed and taken to the recovery room having tolerated this procedure well. Estimated blood loss was 350 mL. The finding was a mid calcar fracture displaced 100%. DIPTI/GABBI Voice ID: [id number] Report ID: [id number]
--- NOTE | 2018-05-23 11:13 | EKG ---
Test Date: 2018-05-17 Test Time: 07:56:57 Event Representative: AGUSTÍN MEASUREMENT RESULTS: Intervals: Rate: 74 HI: 126 QRSD: 140 QT: 428 QTc: 475 [place]: P: 52 HI: 126 QRS: 17 T: 52 INTERPRETIVE STATEMENTS: Normal sinus rhythm Right bundle branch block Abnormal ECG Compared to ECG 10/07/2015 17:01:06 No significant changes Electronically Signed On 05-17-18 10:50:21 CDT by Denis Wilder
== END 2018-05-22 14:14 | disposition home or self-care (01) | DRG 470 ==
LOC: ER 06:55 → ERHOLD 09:40 → 4TH 11:56
PROVIDERS: ADMIT Family Medicine; ATTEND Family Medicine
PROC: 0SRB0J9 Replacement of Left Hip Joint with Synthetic Substitute, Cemented, Open Approach (ICD-10-PCS; principal; 2018-05-17 14:30)
DX: S72.012A Unspecified intracapsular fracture of left femur, initial encounter for closed fracture (principal); W01.0XXA Fall on same level from slipping, tripping and stumbling without subsequent striking against object, initial encounter; Y93.01 Activity, walking, marching and hiking; Y92.013 Bedroom of single-family (private) house as the place of occurrence of the external cause; Z88.0 Allergy status to penicillin; Z79.84 Long term (current) use of oral hypoglycemic drugs; I10 Essential (primary) hypertension; E78.5 Hyperlipidemia, unspecified; D64.9 Anemia, unspecified; E11.649 Type 2 diabetes mellitus with hypoglycemia without coma
CPT/HCPCS: 36415; 51702; 72170; 80048; 81003; 82962; 83735; 85014; 85018; 85025; 85610; 85730; 88305; 88311; 93005; 96374; 96375; 97110; 97116; 97163; 97167; 97530; 99285; J0690; J1650; J2250; J2270; J2370; J2405; J2550; J2704; J3010; J3475; J7030